=== PATIENT | female | born 1985 | race Caucasian/White ===

== ENCOUNTER 2018-04-02 17:15 | Emergency (ER) | payer BC ==
[2018-04-02 17:44] VITALS: BP 122/71
--- NOTE | 2018-04-02 18:35 | UC ---
Skin Complaint HPI - HPI Summary HPI Summary: Patient is a resident of [place]. She states that she is here for the summer at a children's camp. She presents complaining of three-day history of rash primarily to her trunk but also some to her arms and legs. She states this is a combination of itchy and somewhat sore. No other family members or contacts have this rash. she is currently camping but denies any known exposure to poison johana. She has a history of psoriasis and takes immunosuppressants as a result plus has topical steroid cream for as needed use which she is using without relief. She has no associated fever or chills and has no other complaints. This is not consistent with her psoriasis. - History of Current Complaint Chief Complaint: UCSkin Time Seen by Provider: 04/02/18 18:27 Stated Complaint: PAINFUL RASH UNDER ARM Hx Obtained From: Patient Hx Last Menstrual Period: implanon Onset/Duration: Gradual Onset Timing: Constant Pain Intensity: 6 Character: Pruritus, Pain Aggravating Factor(s): Humidity Alleviating Factor(s): Nothing Associated Signs & Symptoms: Positive: Rash. Negative: Fever - Allergy/Home Medications Allergies/Adverse Reactions: Allergies Allergy/AdvReac Type Severity Reaction Status Date / Time acetaminophen [From Tylenol] Allergy See Comment Verified 04/02/18 17:35 bupropion [From Wellbutrin] Allergy See Comment Verified 04/02/18 17:32 citalopram [From Celexa] Allergy See Comment Verified 04/02/18 17:32 escitalopram [From Lexapro] Allergy See Comment Verified 04/02/18 17:32 hydromorphone [From Dilaudid] Allergy See Comment Verified 04/02/18 17:32 infliximab [From Remicade] Allergy Anaphylatic Verified 04/02/18 17:32 Shock latex Allergy Rash Verified 04/02/18 17:32 NSAIDS (Non-Steroidal Allergy See Comment Verified 04/02/18 17:35 Anti-Inflamma mircaptupurine Allergy See Comment Uncoded 04/02/18 17:36 Home Medications: Home Medications ALPRAZolam TAB* [Xanax TAB*] 0.25 mg PO BID PRN 04/02/18 [History Confirmed ] Adalimumab [Humira Pen] 40 mg SQ SEE INSTRUCTIONS 04/02/18 [History Confirmed 07 /16/18] Calcium Carbonate CHEW TAB* [Tums*] 500 mg PO BID PRN 04/02/18 [History Confirmed 04/02/18] Review of Systems Constitutional: Negative Skin: Rash Eyes: Negative ENT: Negative Respiratory: Negative Cardiovascular: Negative Gastrointestinal: Negative Genitourinary: Negative Motor: Negative Neurovascular: Negative Musculoskeletal: Negative Neurological: Negative Psychological: Negative Is Patient Immunocompromised?: No All Other Systems Reviewed And Are Negative: Yes PMH/Surg Hx/FS Hx/Imm Hx - Additional Past Medical History Additional PMH: Psoriasis, Crohn's disease, PTSD Psychological History: Anxiety, Depression - Surgical History Surgical History: Yes Surgery Procedure, Year, and Place: Bowel resect--2007. Fistulotomy--2006. C- sect--2013,2014. Right abd hernia repair--2014 - Family History Known Family History: Positive: Hypertension - Social History Occupation: Employed Part-time Lives: With Family Alcohol Use: Rare Substance Use Type: None Smoking Status (MU): Former Smoker Length of Time of Smoking/Using Tobacco: 09/2012 - Immunization History Vaccination Up to Date: Yes Physical Exam Triage Information Reviewed: Yes Appearance: Well-Appearing Vital Signs: Initial Vital Signs Temp 98.5 F 04/02/18 17:36 Pulse 93 04/02/18 17:36 Resp 16 04/02/18 17:36 BP 122/71 04/02/18 17:36 Pulse Ox 98 04/02/18 17:36 Vital Signs Reviewed: Yes Eyes: Positive: Conjunctiva Clear ENT: Positive: Normal ENT inspection Neck: Positive: Supple, Nontender, No Lymphadenopathy Respiratory: Positive: Lungs clear, Normal breath sounds Cardiovascular: Positive: RRR, No Murmur Abdomen Description: Positive: Nontender, No Organomegaly, Soft Bowel Sounds: Positive: Present Musculoskeletal: Positive: ROM Intact Neurological: Positive: Alert Psychological: Positive: Age Appropriate Behavior Skin Exam: Normal Skin: Positive: rashes - Patient has plaque type rash to both axilla that is consistent with psoriasis. She has a secondary rash which is small red dots some with white heads primarily to her trunk but also on her extremities that appears consistent with a folliculitis. This rash does not involve the webs of her fingers or under her breasts. Is not concentrated around her waist. There are no burrows. Course/Dx - Course Course Of Treatment: No concern for infestation or contact dermatitis. The rash is consistent with a folliculitis. She denies history of MRSA but is a camp with multiple individuals in children thus I'm going to use Bactrim in the event she has had a MRSA exposure. There is no concern for risk for hot tub folliculitis. Since she is here for the summer, I will give her referral to [facility] dermatology. - Diagnoses Provider Diagnoses: Folliculitis Discharge - Sign-Out/Discharge Documenting (check all that apply): Patient Departure - Discharge Plan Condition: Stable Disposition: HOME Prescriptions: Sulfamethox/Trimethoprim DS* [Bactrim DS 800/160 TAB*] 1 tab PO BID #20 tab Patient Education Materials: Folliculitis (ED) Referrals: Ramon Garcia MD [Medical Doctor] - 7 Days - Billing Disposition and Condition Condition: STABLE Disposition: Home Attestation Statement User Type: Provider - I was available for consult. This patient was seen by the [facility]. The patient was not presented to, seen by, or examined by me. -Inge
== END 2018-04-02 18:44 | disposition home or self-care (01) ==
LOC: UCCORT 17:15
DX: L73.9 Follicular disorder, unspecified (principal); Z87.891 Personal history of nicotine dependence
CPT/HCPCS: 99202; G0463